=== PATIENT | female | born 1970 | race Asian ===

== ENCOUNTER 2020-10-28 12:23 | Emergency (ER) | payer OTHER ==
[~2020-10-28] VITALS: Ht 157.5 cm; Wt 77.1 kg
[2020-10-28 12:42] LABS: URINE BILIRUBIN NEGATIVE (Negative); URINE BLOOD 3+ (Negative); URINE CLARITY CLOUDY; URINE COLOR YELLOW; URINE GLUCOSE-RANDOM* NEGATIVE (Negative); URINE KETONES NEGATIVE (Negative); URINE LEUKOCYTES-REFLEX 1+ (Negative); URINE NITRITE-REFLEX NEGATIVE (Negative); URINE PROTEIN (DIPSTICK) TRACE (Negative); URINE UROBILINOGEN 0.2 E.U./dl (0.2-1.0)
[2020-10-28 12:42] LABS: ABSOLUTE NEUTROPHILS 7.4 thou/uL (1.4-8.2); BASOPHILS 0.8 % (0.0-2.0); EOSINOPHILS 0.5 % (0.0-3.0); HEMATOCRIT 40.2 % (37.0-47.0); HEMOGLOBIN 13.5 gm/dL (12.0-15.0); LYMPHOCYTES 22.1 % (24.0-44.0); MCH 27.8 pg (26.0-34.0); MCHC 33.6 g/dL (28.0-37.0); MCV 82.8 fL (80.0-100.0); MONOCYTES 7.4 % (1.0-8.0); POLYS 69.2 % (36.0-66.0); RBC 4.85 mil/uL (4.20-5.00); RDW 15.3 % (10.5-14.5); WBC 10.6 thou/uL (4.0-11.0)
[2020-10-28 12:55] LABS: SQUAMOUS 4-10 Moderate /LPF (0-3)
[2020-10-28 12:56] LABS: BACTERIA-REFLEX 1-9 Few /HPF (None Seen); CASTS None Seen /LPF (None Seen); CRYSTALS None Seen /LPF (None Seen); URINE RBC >20 Many /HPF (NONE SEEN); URINE WBC-REFLEX 6-15 Few /HPF (0-5)
[2020-10-28 12:59] LABS: CREATININE 0.7 mg/dL (0.6-1.0); POTASSIUM 3.8 mmol/L (3.5-5.1)
[2020-10-28 13:05] LABS: ALBUMIN 3.8 g/dL (3.4-5.0); TOTAL BILIRUBIN 0.6 mg/dL (0.2-1.0); TOTAL PROTEIN 7.4 g/dL (6.4-8.2)
[2020-10-28 13:40] LABS: PLATELET COUNT 398 thou/uL (150-400); PLATELET ESTIMATE NORMAL
[2020-10-28 16:41] VITALS: BP 172/106
== END 2020-10-28 16:58 | disposition home or self-care (01) ==
LOC: ER 12:23
PROVIDERS: Student in an Organized Health Care Education/Training Program
DX: R10.11 Right upper quadrant pain (principal); I50.9 Heart failure, unspecified